=== PATIENT | male | born 1960 | race African-American/Black ===

== ENCOUNTER 2017-11-18 01:11 | Emergency (ER) | payer BC, OTHER ==
[2017-11-18] MEDS ORDERED: Ketorolac Tromethamine 30 MG/ML VIAL ONE (01:50)
[2017-11-18] MEDS ORDERED: Acetaminophen/Codeine 30-300mg Tablet ONE (01:50)
[2017-11-18] MEDS ORDERED: Morphine 4 MG/ML Carpuject ONE (02:24)
== END 2017-11-18 02:45 | disposition home or self-care (01) ==
LOC: BURERS 01:11
DX: S46.912A Strain of unspecified muscle, fascia and tendon at shoulder and upper arm level, left arm, initial encounter (principal); E78.00 Pure hypercholesterolemia, unspecified; F41.9 Anxiety disorder, unspecified; Z79.899 Other long term (current) drug therapy; Z79.82 Long term (current) use of aspirin; X50.9XXA Other and unspecified overexertion or strenuous movements or postures, initial encounter
CPT/HCPCS: 96372; J1885; J2270

== ENCOUNTER 2019-02-04 07:48 | Outpatient (CLI) | payer BC ==
--- NOTE | 2019-02-04 08:05 | RAD ---
EXAM: Chest Two Views 02/04/2019 8:02 AM HISTORY: Atherosclerotic heart disease of [place] coronary artery without angina pectoris COMPARISON: None. FINDINGS: Heart: Heart size is accentuated by the low lung volumes. No definite cardiomegaly is evident. Pulmonary vessels: Normal. Costophrenic angles: Clear. Lungs: Hypoventilation but without focal infiltrate. Pneumothorax: None. Osseous structures:No acute osseous abnormality is evident. There is scattered degenerative and osteo arthritic change present. Additional findings: None. IMPRESSION: Hypoventilation but without acute cardiac pulmonary abnormality.
== END 2019-02-04 07:49 | disposition home or self-care (01) ==
LOC: BURRAD 07:48
PROVIDERS: ATTEND Internal Medicine Cardiovascular Disease
DX: I25.10 Atherosclerotic heart disease of native coronary artery without angina pectoris (principal); R06.89 Other abnormalities of breathing
CPT/HCPCS: 71046